=== PATIENT | male | born 1980 | race Caucasian/White ===

== ENCOUNTER 2022-04-18 07:35 | Emergency (ER) | payer OTHER, SELFPAY ==
[2022-04-18 07:49] VITALS: BP 125/85; PULSE 84; RESP 18; TEMP 36.7; O2SAT 98; BMI 34.4
--- NOTE | 2022-04-18 08:10 | CRLHL7_ITS ---
For Patients: As a result of the Century Cures Act, medical imaging exams and procedure reports are released immediately into your electronic medical record. You may view this report before your referring provider. If you have questions, please contact your health care provider. Indication: Right leg L5 weakness. Suspect large disc Technique: Noncontrast sagittal and axial T1, T2, and sagittal STIR sequences are provided. Comparison: No prior studies available for comparison at this institution. Findings: Lumbar spinal alignment is anatomic. No spondylolysis or spondylolisthesis. No fractures. No prevertebral or paraspinal edema. Small Schmorl`s nodes in the L3 and L4 superior endplates. The conus medullaris is normal in signal and location. There are 5 lumbar type vertebral bodies. Disc desiccation at L4-5 and L5-S1. T12-L1: Normal disc and facet joints. No significant spinal canal stenosis or neural foramen narrowing. L1-2: Normal disc and facet joints. No significant spinal canal stenosis or neural foramen narrowing. L2-3: Normal disc and facet joints. No significant spinal canal stenosis or neural foramen narrowing. L3-4: Normal disc. Mild facet arthrosis. No significant spinal canal stenosis or neural foramen narrowing. L4-5: Disc desiccation and mild disc height loss. There is a large central disc extrusion with 1.2 cm inferior migration that results in severe spinal canal stenosis and impingement of traversing nerve roots. No significant neural foramen narrowing L5-S1: Disc desiccation and mild disc height loss. Small central protrusion indents the ventral thecal sac and right S1 nerve sheath without chino impingement. No neural foramina narrowing Impression : 1. No acute osseous abnormality. Normal alignment. No discitis or osteomyelitis. 2. At L4-5, large central disc extrusion with inferior migration results in severe spinal canal stenosis and impingement of traversing nerve roots. 3. At L5-S1, small central disc protrusion indents the ventral thecal sac without significant spinal canal stenosis. Mild abutment of the right S1 nerve sheath without chino impingement. Dictated by Gonzalo Jordan MD @ 04/18/2022 9:15:02 AM (Electronically Signed)
--- NOTE | 2022-04-18 08:16 | ED.BACK ---
HPI - Back Pain/Injury General Date Seen: 04/18/22 Chief Complaint: Back Injury/Pain Stated Complaint: backpain/numbness weakness on right leg Time Seen by Provider: 04/18/22 07:44 Source: patient Mode of arrival: ambulatory Limitations: no limitations History of Present Illness HPI Narrative: Patient is a 41-year-old gentleman who presents here, for back pain, and right leg weakness. This started 2 weeks ago where he saw primary care physician was placed on prednisone for left leg pain, that primarily came from his buttock down his hamstrings of his left leg. In the last 24-36 hours he has noted right leg weakness, he is catching his right foot, cannot walk on his right heel. Previously he had no issues associated with this he also has altered sensation over the top of his foot, between his 1st and 2nd toe, and over his right low lateral calf and anterior conde. Denies any bowel or bladder symptoms associated with this fevers chills or sweats, is taking Tylenol and ibuprofen along with Flexeril, finished up a prednisone burst, but said this did not really help his discomfort. Previous history of back pain, with physical therapy in the past. 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 Has been trying to do exercises for this. Previous history of back surgery, fevers chills or sweats, malignancy, or any other high risk features. Related Data Home Medications Medication Instructions Recorded Confirmed acetaminophen 300 mg-codeine 30 mg 1 tab PO .QD PRN 04/13/22 04/13/22 tablet Previous Rx's Medication Instructions Recorded cyclobenzaprine 10 mg tablet 10 mg PO TID PRN muscle spasm #30 04/13/22 tabs prednisone 20 mg tablet 40 mg PO QDAY #10 tabs 04/13/22 Allergies Allergy/AdvReac Type Severity Reaction Status Date / Time morphine AdvReac Mild Verified 04/18/22 07:55 No Known Allergies Allergy Unknown Uncoded 04/13/22 09:54 Review of Systems Status of ROS: Reports: 10 or more systems reviewed and unremarkable except as noted in History and below [facility] Social History Smoking Status: Never smoker How often do you have a drink containing alcohol: 4 or more times a week How many standard drinks containing alcohol do you have on a typical day: 1 or 2 AUDIT-C Alcohol total score: 4 Non-prescribed substance use: denies use Exam Narrative: Exam Narrative: On examination Swapnil in the room, as forward flexion of 30?, no palpable tenderness noted over his back on palpation percussion, there is no evidence of any redness masses. Extension is full, lateral flexion is 20? and rotation is normal, right leg is positive at approximately 30?, with inducement of pain that comes down and L5 dermatomal presentation. He has 4+ out of 5 heel walking on the right, his EHL is 3+ out of 5 on the right. Reflexes are normal bilaterally, 1+ in his ankles and also knees. Muscle bulk is equal bilaterally, Altered sensation is noted over the dorsum of his foot, over right lateral lower leg. Consistent again with an L5 nerve presentation Const: Vital Signs, click to edit/add: Vital Signs - 24 hr 04/18/22 07:49 Temperature 98.1 F Pulse Rate [Pulse Oximeter] 84 Respiratory Rate 18 Blood Pressure [Le ft Upper Arm] 125/85 Pulse Oximetry 98 Oxygen Delivery Me thod Room Air Course Course Hospital Course: I discussed with the patient, we will get an MRI, to further delineate this I strongly suspect he has a large L5 herniation, likely originated from L4-L5 but possibility of L5-S1 also. With some contralateral issue. Not getting a feeling this is cauda equina currently, but the weakness is worrisome. Reevaluation(s) Reevaluation #1: I spoke to Dr. Davidson from the ED at [facility] after I had been texting with Dr. Griffith from [facility]. I recommended the Swapnil go up to the emergency room, and be seen there by the Spine fellow, for likely surgery, and decompression. Chose to remain NPO. Time: 13:32 Vital Signs Vital signs: Initial Vital Signs Temperature 98.1 F 04/18/22 07:49 Temperature Source Temporal Artery Scan 04/18/22 07:49 Pulse Rate 84 04/18/22 07:49 Respiratory Rate 18 04/18/22 07:49 Blood Pressure 125/85 04/18/22 07:49 Blood Pressure Mean 98 04/18/22 07:49 Blood Pressure Position Sitting 04/18/22 07:49 Pulse Oximetry 98 04/18/22 07:49 Oxygen Delivery Method 04/18/22 07:49 Vital Signs Temperature 98.1 F 04/18/22 07:49 Pulse Rate 84 04/18/22 07:49 Respiratory Rate 18 04/18/22 07:49 Blood Pressure 125/85 04/18/22 07:49 Pulse Oximetry 98 04/18/22 07:49 Oxygen Delivery Method 04/18/22 07:49 Temperature 98.1 F 04/18/22 07:49 Pulse Rate 84 04/18/22 07:49 Respiratory Rate 18 04/18/22 07:49 Blood Pressure 125/85 04/18/22 07:49 Pulse Oximetry 98 04/18/22 07:49 Oxygen Delivery Method 04/18/22 07:49 MDM - Back Pain/Injury MDM Narrative Medical decision making narrative: Life-threatening differential diagnosis considered include: Cauda equina an epidural abscess, other differential diagnosis considered includes sprain, contusion, nerve root entrapment, radiculopathy, muscle spasm, urolithiasis, lumbar fracture, pyelonephritis, appendicitis, biliary colic, as well as other etiologies. The patient denies saddle anesthesia bowel or bladder incontinence or lower extremity weakness, recent weight loss, or history of malignancy. Medical Records Attestation: I reviewed the patient's medical records. Lab Data Attestation: I reviewed the patient's lab results. Imaging Data MRI lumbar: Attestation: I have reviewed the pertinent imaging results. Radiologist's impression: Patient: MAL JOSEPH Facility: [facility] Site . Site : [id number] Study: MRI Spine Lumbar WITHOUT-04/18/2022 9:02:57 AM Ordering Physician: Geovani Valente Final Report: Indication: Right leg L5 weakness. Suspect large disc Technique: Noncontrast sagittal and axial T1, T2, and sagittal STIR sequences are provided. Comparison: No prior studies available for comparison at this institution. Findings: Lumbar spinal alignment is anatomic. No spondylolysis or spondylolisthesis. No fractures. No prevertebral or paraspinal edema. Small Schmorl`s nodes in the L3 and L4 superior endplates. The conus medullaris is normal in signal and location. There are 5 lumbar type vertebral bodies. Disc desiccation at L4-5 and L5-S1. T12-L1: Normal disc and facet joints. No significant spinal canal stenosis or neural foramen narrowing. L1-2: Normal disc and facet joints. No significant spinal canal stenosis or neural foramen narrowing. L2-3: Normal disc and facet joints. No significant spinal canal stenosis or neural foramen narrowing. L3-4: Normal disc. Mild facet arthrosis. No significant spinal canal stenosis or neural foramen narrowing. L4-5: Disc desiccation and mild disc height loss. There is a large central disc extrusion with 1.2 cm inferior migration that results in severe spinal canal stenosis and impingement of traversing nerve roots. No significant neural foramen narrowing L5-S1: Disc desiccation and mild disc height loss. Small central protrusion indents the ventral thecal sac and right S1 nerve sheath without chino impingement. No neural foramina narrowing Impression : 1. No acute osseous abnormality. Normal alignment. No discitis or osteomyelitis. 2. At L4-5, large central disc extrusion with inferior migration results in severe spinal canal stenosis and impingement of traversing nerve roots. 3. At L5-S1, small central disc protrusion indents the ventral thecal sac without significant spinal canal stenosis. Mild abutment of the right S1 nerve sheath without chino impingement. Dictated by Gonzalo Jordan MD @ 04/18/2022 9:15:02 AM (Electronic Signature) Discharge Plan Discharge Clinical Impression: Lumbar radiculopathy, Right leg weakness Patient Disposition: [facility] Discharge Location: [facility] Condition: Stable Additional Instructions: Transfer to the emergency room and [facility] discussed case with Dr. Davidson.
--- NOTE | 2022-04-18 08:55 | ED.NURSE ---
pt back from mri, sitting up in chair, drinking water.
--- NOTE | 2022-04-18 13:41 | ED.NURSE ---
dr. roy consultated with [facility], they want pt transferred to [place]. pt transferring to [place] ED via private vehicle. pt given copy of mri disc to bring with [facility]. report called to [place] ED.
--- NOTE | 2022-05-11 20:43 | ED_ITS ---
ED Chart Note Chart Note Details Date: 05/11/22 Details: Received a call from Mr. Cabral and [place]. Spent time in review of record. Apparently had been spending a good deal of time doing dishes today on [employer] and was bending over carving the turkey with sudden intense pain going down his leg. His recently diagnosed with L4-5 disc herniation and anticipating surgical intervention. Has gone through a couple rounds of steroids and epidural injection and does have [place]. Has taken a total of 3 tabs of 5/325 [place] over the course of the day but can not get ahead of this pain. He is about to lose it he says. If they can't get this under control Swapnil understands that surgical intervention is still indicated and they would get in the car in go up to [place]. He is reluctant to move at this point. Pain is of maybe a 4/10 if he is not moving at all and lying down, ambulating is essentially impossible due to pain. Does not have new weakness specifically. 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 Olivo recently in the emergency department. They do have recent fill a [place] as noted. Recommended on initial phone call with them that they try 3 tabs of 5/325 [place] and 800 mg of ibuprofen and reassess. Presenting here for oxycodone that they would anticipate needing here soon anyway. Alternatively did offer them to come to the emergency department for an injection to get ahead of this pain. Did fill oxycodone from [facility].
== END 2022-04-18 13:45 | disposition short-term general hospital (02) ==
PROVIDERS: Emergency Provider Family Medicine; PCP Family Medicine
DX: M51.16 Intervertebral disc disorders with radiculopathy, lumbar region (principal); M48.061 Spinal stenosis, lumbar region without neurogenic claudication; M51.27 Other intervertebral disc displacement, lumbosacral region
CPT/HCPCS: 72148; 99284; 99285